=== PATIENT | female | born 1960 | race Caucasian/White ===

== ENCOUNTER 2017-05-19 02:59 | Emergency (ER) | payer OTHER ==
[~2017-05-19] VITALS: Ht 162.6 cm; Wt 117.9 kg
[2017-05-19 02:59] VITALS: BP_SYST 180
[~2017-05-19 02:59] MED LIST: AMLO2.5T2 PO; LEVO150T8 PO; NAPR250T PO
--- NOTE | 2017-05-19 02:59 | NUR ---
Placed in room 08 . Placed on cardiac technician, blood pressure machine and pulse oximeter. To gown for exam. Side rails up. Report given to MATTHEW Jerry.
--- NOTE | 2017-05-19 03:00 | NUR ---
Patient AAO x4, sitting in bed c/o sternal chest pain 4/10, burning sensation radiating to back, -N/V/D, C/O dry mouth. Patient anxious and restless, skin dry, skin pink and perfused. No acute distress noted. Will continue to monitor.
--- NOTE | 2017-05-19 03:30 | NUR ---
ER at bedside examining patient.
[2017-05-19] MEDS ORDERED: MAG-AL HYDROX/SIMETH 30 ML UDC PO ONE (03:45)
[2017-05-19] MEDS ORDERED: ONDANSETRON HCL 4 MG/2 ML VIAL IVP ONE (03:45)
[2017-05-19] MEDS ORDERED: PANTOPRAZOLE SODIUM 40 MG/VIAL (PROTONIX) IVP ONE (03:45)
[2017-05-19 04:13] LABS: HEMATOCRIT 38.3 % (36-48); HEMOGLOBIN 12.3 g/dL (12.0-16.0); MEAN CORPUSCULAR VOLUME 89 fL (79.0-98.0); RED BLOOD CELL COUNT(AUTO) 4.32 MIL/uL (4.2-6.2); WHITE BLOOD COUNT (AUTO) 6.5 K/uL (4.8-10.8)
[2017-05-19 04:14] LABS: BASOPHILS # (AUTO) 0.3 K/uL (0.0-0.2); BASOPHILS % (AUTO) 4.3 % (0.0-2.0); EOSINOPHILS % (AUTO) 0.2 % (0.0-4.0); LYMPHOCYTES # (AUTO) 2.2 K/uL (1.0-5.5); LYMPHOCYTES % (AUTO) 34.6 % (20.5-51.5); MEAN CORPUSCULAR HEMOGLOBIN 28 pg (27-31); MEAN CORPUSCULAR HGB CONC 32 % (32-36); MONOCYTES # (AUTO) 0.3 K/uL (0.0-1.0); MONOCYTES % (AUTO) 4.4 % (1.7-9.3); NEUTROPHILS # (AUTO) 3.7 K/uL (1.8-7.7); NEUTROPHILS % (AUTO) 56.5 % (40.0-70.0); PLATELET COUNT (AUTO) 383 K/uL (130-430); RED CELL DISTRIBUTION WIDTH 13.2 % (9.0-15.0)
[2017-05-19 04:18] LABS: CALCIUM 9.8 mg/dL (8.4-11.0); CREATININE 0.72 mg/dL (0.55-1.30); POTASSIUM 3.2 mmol/L (3.5-5.1)
[2017-05-19 04:21] LABS: PROTHROMBIN TIME 10.2 SECS (9.5-12.5)
[2017-05-19 04:23] LABS: ALBUMIN 4.2 g/dL (3.4-4.8); TOTAL BILIRUBIN 0.2 mg/dL (0.0-1.0)
[2017-05-19] MEDS ORDERED: POTASSIUM CHLORIDE 20 MEQ TAB.PRT.SR PO ONE (05:15)
[2017-05-19 05:26] VITALS: BP_SYST 146
--- NOTE | 2017-05-19 05:26 | NUR ---
Patient given written and verbal discharge instructions and verbalizes understanding. ER MD discussed with patient the results and treatment provided. Patient in stable condition. ID arm band removed. Rx of Protonix given. Patient educated on pain management and to follow up with PMD. Pain Scale 0/10. Opportunity for questions provided and answered.
== END 2017-05-19 05:26 | disposition home or self-care (01) ==
LOC: SED 02:59
DX: F41.9 Anxiety disorder, unspecified (principal); K21.9 Gastro-esophageal reflux disease without esophagitis; I10 Essential (primary) hypertension; E11.9 Type 2 diabetes mellitus without complications; E05.90 Thyrotoxicosis, unspecified without thyrotoxic crisis or storm; Z79.899 Other long term (current) drug therapy
CPT/HCPCS: 36415; 71045; 80053; 83880; 84484; 85025; 85610; 85730; 93005; 96374; 96375; 99285; C9113; J2405

== ENCOUNTER 2017-06-01 22:20 | Inpatient (IN) | payer OTHER ==
[~2017-06-01] VITALS: Ht 152.4 cm; Wt 90.7 kg
[2017-06-01 22:23] VITALS: BP_SYST 157
[2017-06-01] MEDS ORDERED: ASPIRIN 325 MG TABLET PO ONE (22:30)
[2017-06-01] MEDS ORDERED: NITROGLYCERIN 0.4 MG TAB.SUBL SL ONE (22:30)
[2017-06-01 23:23] LABS: BASOPHILS % (AUTO) 0.5 % (0.0-2.0); EOSINOPHILS % (AUTO) 0.2 % (0.0-4.0); HEMATOCRIT 36.9 % (36-48); HEMOGLOBIN 12.3 g/dL (12.0-16.0); LYMPHOCYTES # (AUTO) 2.2 K/uL (1.0-5.5); LYMPHOCYTES % (AUTO) 29.6 % (20.5-51.5); MEAN CORPUSCULAR HEMOGLOBIN 30 pg (27-31); MEAN CORPUSCULAR HGB CONC 33 % (32-36); MEAN CORPUSCULAR VOLUME 90 fL (79.0-98.0); MONOCYTES # (AUTO) 0.4 K/uL (0.0-1.0); MONOCYTES % (AUTO) 5.8 % (1.7-9.3); NEUTROPHILS # (AUTO) 4.8 K/uL (1.8-7.7); NEUTROPHILS % (AUTO) 63.9 % (40.0-70.0); PLATELET COUNT (AUTO) 367 K/uL (130-430); RED BLOOD CELL COUNT(AUTO) 4.12 MIL/uL (4.2-6.2); RED CELL DISTRIBUTION WIDTH 13.4 % (9.0-15.0); WHITE BLOOD COUNT (AUTO) 7.4 K/uL (4.8-10.8)
[2017-06-01] MEDS ORDERED: METOCLOPRAMIDE HCL 10 MG/2 ML VIAL IVP ONE (23:30)
[2017-06-01] MEDS ORDERED: NACL 0.9% 1,000 ML IV ONE (23:30)
[2017-06-01 23:32] LABS: PROTHROMBIN TIME 10.2 SECS (9.5-12.5)
[2017-06-01] MEDS ORDERED: METOCLOPRAMIDE HCL 10 MG/2 ML VIAL ONE (23:36)
[2017-06-01 23:46] LABS: CALCIUM 10.2 mg/dL (8.4-11.0); CREATININE 0.67 mg/dL (0.55-1.30); POTASSIUM 3.7 mmol/L (3.5-5.1)
[2017-06-01 23:49] LABS: ALBUMIN 4.4 g/dL (3.4-4.8); TOTAL BILIRUBIN 0.2 mg/dL (0.0-1.0)
[2017-06-02 00:16] LABS: CKMB RELATIVE INDEX 1.1 (0.0-2.9); CREATINE KINASE MB 2.4 ng/mL (0-3.6)
[2017-06-02 00:38] LABS: BILIRUBIN,URINE NEGATIVE (NEGATIVE); BLOOD, URINE NEGATIVE (NEGATIVE); CLARITY/URINE CLEAR (CLEAR); COLOR,URINE YELLOW (YELLOW); GLUCOSE,URINE NEGATIVE (NEGATIVE); KETONES,URINE NEGATIVE (NEGATIVE); LEUKOCYTE ESTERASE ,URINE TRACE (NEGATIVE); NITRITE, URINE NEGATIVE (NEGATIVE); PH,URINE 5.5 (5.0-8.0); PROTEIN URINE NEGATIVE (NEGATIVE); UROBILINOGEN,URINE 0.2 (0.2-1.0)
[2017-06-02 00:44] LABS: BACTERIA,URINE FEW /HPF (None Seen); RBC,URINE 0-3 /HPF (0-3); WBC,URINE 0-3 /HPF (0-3)
[2017-06-02 01:22] LABS: AMYLASE 55 U/L (0-100); LIPASE 208 U/L (73-393)
[2017-06-02] MEDS ORDERED: INSULIN REGULAR, HUMAN 100 UNITS/ML, 10 ML VIAL (novoLIN R) SUBCUT PRN ×2 (02:30→02:45)
[2017-06-02 02:47] VITALS: BP_SYST 131
[2017-06-02] MEDS ORDERED: ONDANSETRON HCL 4 MG/2 ML VIAL IM PRN (03:45)
[2017-06-02] MEDS ORDERED: MORPHINE 4 MG/ML INJ. SYRINGE IVP PRN (03:45)
[2017-06-02] MEDS ORDERED: MORPHINE 2 MG/ML INJ. SYRINGE IVP PRN (03:45)
[2017-06-02 08:15] VITALS: BP_SYST 129
[2017-06-02] MEDS ORDERED: busPIRone HCL 5 MG TABLET PO ONE (10:30)
[2017-06-02 11:48] LABS: THYROID STIMULATING HORMONE 2.78 uIu/mL (0.36-3.74)
[2017-06-02 11:50] VITALS: BP_SYST 128
[2017-06-02 16:17] VITALS: BP_SYST 103
[2017-06-02] MEDS ORDERED: IOHEXOL 350 mgI/mL, 150 ML INFUS..BTL IV ONE (19:56)
[2017-06-02 19:57] VITALS: BP_SYST 145
[2017-06-02] MEDS: busPIRone HCL 5 MG TABLET PO SCH (20:37)
[2017-06-03 00:22] VITALS: BP_SYST 143
[2017-06-03 06:46] LABS: BASOPHILS % (AUTO) 0.7 % (0.0-2.0); EOSINOPHILS % (AUTO) 0.3 % (0.0-4.0); HEMATOCRIT 36.4 % (36-48); HEMOGLOBIN 12.3 g/dL (12.0-16.0); LYMPHOCYTES # (AUTO) 2.2 K/uL (1.0-5.5); LYMPHOCYTES % (AUTO) 36.5 % (20.5-51.5); MEAN CORPUSCULAR HEMOGLOBIN 30 pg (27-31); MEAN CORPUSCULAR HGB CONC 34 % (32-36); MEAN CORPUSCULAR VOLUME 89 fL (79.0-98.0); MONOCYTES # (AUTO) 0.3 K/uL (0.0-1.0); MONOCYTES % (AUTO) 5.7 % (1.7-9.3); NEUTROPHILS # (AUTO) 3.6 K/uL (1.8-7.7); NEUTROPHILS % (AUTO) 56.8 % (40.0-70.0); PLATELET COUNT (AUTO) 352 K/uL (130-430); RED BLOOD CELL COUNT(AUTO) 4.09 MIL/uL (4.2-6.2); RED CELL DISTRIBUTION WIDTH 13.1 % (9.0-15.0); WHITE BLOOD COUNT (AUTO) 6.1 K/uL (4.8-10.8)
[2017-06-03 06:56] LABS: CALCIUM 9.6 mg/dL (8.4-11.0); CREATININE 0.68 mg/dL (0.55-1.30); POTASSIUM 3.7 mmol/L (3.5-5.1)
[2017-06-03] MEDS ORDERED: LEVOTHYROXINE SODIUM 0.15 MG TABLET PO SCH (07:00)
[2017-06-03] MEDS: busPIRone HCL 5 MG TABLET PO SCH (08:06)
[2017-06-03 08:10] VITALS: BP_SYST 157
[2017-06-03] MEDS ORDERED: LOSARTAN POTASSIUM 50 MG TABLET (COZAAR) PO SCH (09:00)
[2017-06-03 12:18] VITALS: BP_SYST 139
[2017-06-03 13:01] VITALS: BP_SYST 125
[2017-06-03] MEDS ORDERED: BUSP10TA3 PO (13:06)
== END 2017-06-03 13:30 | disposition home or self-care (01) | DRG 313 ==
LOC: SED 22:20 → STU 06-02 02:25
PROVIDERS: ADMIT Internal Medicine; ATTEND Internal Medicine
DX: R07.89 Other chest pain (principal); E03.9 Hypothyroidism, unspecified; E78.5 Hyperlipidemia, unspecified; E11.9 Type 2 diabetes mellitus without complications; F41.0 Panic disorder [episodic paroxysmal anxiety]; I10 Essential (primary) hypertension; K21.9 Gastro-esophageal reflux disease without esophagitis; E66.8 Other obesity; Z79.899 Other long term (current) drug therapy; Z82.49 Family history of ischemic heart disease and other diseases of the circulatory system; Z68.39 Body mass index [BMI] 39.0-39.9, adult
CPT/HCPCS: 36415; 71045; 71275; 76700-TC; 80048; 80053; 80061; 81000-TC; 82150-TC; 82550-TC; 82553-TC; 82962; 83690-TC; 83880; 84443-TC; 84484; 85025; 85610-TC; 85730-TC; 93005; 96361; 96374; 99285; J1815; J2270; J2765; J7030; Q9967

== ENCOUNTER 2019-02-21 23:02 | Emergency (ER) | payer OTHER ==
[~2019-02-21] VITALS: Ht 134.6 cm; Wt 94.3 kg
[~2019-02-21 23:02] MED LIST changes: +BUSP10TA3 PO
[2019-02-22 00:13] VITALS: BP_SYST 186
--- NOTE | 2019-02-22 00:17 | NUR ---
Pt placed to ER waiting room with family member in stable condition.
--- NOTE | 2019-02-22 01:00 | NUR ---
Pt placed to ER bed 03. Report given to MATTHEW Ortiz.
--- NOTE | 2019-02-22 01:05 | NUR ---
Pt brought in by family member. Pt awake, alert, oriented x4. Pt states that she has been having increasingly severe Eye pain, mouth pain, tongue pain and lip pain x72 hours. Pt denies eating new foods, using new lotions of perfumes. Pt Denies chest pain, nausea, vomiting, diarrhea, shortness of breath. Pt denies additional medical complaint at this time. Pt Resting comfortably in bed, no acute signs of distress at this time. Family bedside. VSS, will continue to monitor.
--- NOTE | 2019-02-22 01:30 | NUR ---
Pt sleeping in ED bed. Resting comfortably without signs of acute distress at this time.
--- NOTE | 2019-02-22 01:50 | NUR ---
ER at bedside examining patient.
[2019-02-22 02:10] VITALS: BP_SYST 166
--- NOTE | 2019-02-22 02:10 | NUR ---
Patient given written and verbal discharge instructions and verbalizes understanding. ER MD discussed with patient the results and treatment provided. Patient in stable condition. ID arm band removed. Rx of Patanol 0.1% given. Patient educated on pain management and to follow up with PMD. Pain Scale 0/10. Opportunity for questions provided and answered. Medication side effect fact sheet provided.
== END 2019-02-22 02:10 | disposition home or self-care (01) ==
LOC: SED 23:02
DX: T78.40XA Allergy, unspecified, initial encounter (principal); H57.13 Ocular pain, bilateral; E11.9 Type 2 diabetes mellitus without complications; I10 Essential (primary) hypertension; E05.90 Thyrotoxicosis, unspecified without thyrotoxic crisis or storm; Z79.899 Other long term (current) drug therapy; X58.XXXA Exposure to other specified factors, initial encounter
CPT/HCPCS: 99283